=== PATIENT | female | born 2000 | race Caucasian/White ===

== ENCOUNTER 2023-06-26 20:11 | Emergency (ER) | payer SELFPAY ==
[~2023-06-26] VITALS: Ht 162.6 cm; Wt 68.0 kg
[2023-06-26 20:14] VITALS: TEMP 98.9
[2023-06-26] MEDS: MORPHINE SULFATE 4 MG/ML INJ (FOR IV/IM USE) IV ONE (20:54)
[2023-06-26] MEDS: SODIUM CHLORIDE 0.9% 1,000 ML IV ONE (20:54)
[2023-06-26] MEDS: ONDANSETRON HCL 4MG/2ML INJ IV ONE (20:54)
[2023-06-26 21:07] LABS: BASOPHILS % 0.3 % (0.0-2.0); EOSINOPHILS % 1.3 % (0.0-5.0); HEMATOCRIT. 37.3 % (36.0-48.0); HEMOGLOBIN. 12.9 g/dL (12.0-16.0); LYMPHOCYTES % 34.1 % (20.0-50.0); MEAN CORPUSCULAR HGB CONC 34.6 g/dL (31.0-37.0); MEAN CORPUSCULAR VOLUME 95.4 fL (81.0-99.0); MEAN PLATELET VOLUME 8.3 fl (7.4-10.4); MONOCYTES % 5.6 % (2.0-8.0); NEUTROPHILS % 58.7 % (40.0-76.0); PLATELET 277 x1000/uL (130-400); RED BLOOD CELL COUNT 3.91 mill/uL (4.2-5.4); RED CELL DISTRIBUTION WIDTH 13.8 % (11.6-14.6); WHITE BLOOD COUNT 9.2 x1000/uL (4.5-11.0)
[2023-06-26 21:24] LABS: HCG SCREEN NEGATIVE
[2023-06-26 21:26] LABS: ALANINE AMINOTRANSFERASE 13 IU/L (10-49); ALBUMIN 4.8 g/dL (3.2-4.8); ASPARTATE AMINOTRANSFERASE 19 IU/L (<34); BILIRUBIN TOTAL 0.4 mg/dL (0.1-1.0); CALCIUM 9.2 mg/dL (8.7-10.4); CARBON DIOXIDE 26 mEq/L (21-32); CHLORIDE 105 mEq/L (98-107); CREATININE 0.7 mg/dL (0.6-1.0); GLUCOSE 113 mg/dL (70-105); POTASSIUM 3.4 mEq/L (3.5-5.1); PROTHROMBIN TIME 10.9 sec (9.6-11.0); SODIUM 138 mEq/L (136-145); UREA NITROGEN BLOOD 10 mg/dL (9-23)
[2023-06-26] MEDS: HYDROMORPHONE HCL/PF 2MG/ML CPJ IV ONE (22:04)
[2023-06-26 23:20] VITALS: O2SAT 98
[2023-06-26] MEDS: PROPOFOL 10MG/ML 100ML 100 ML IV SCH (23:20)
[2023-06-27 01:52] VITALS: BP 113/64; PULSE 73; RESP 8
== END 2023-06-27 01:59 | disposition home or self-care (01) ==
LOC: ER 20:11
DX: S83.005A Unspecified dislocation of left patella, initial encounter (principal); R56.9 Unspecified convulsions; X58.XXXA Exposure to other specified factors, initial encounter; Y93.89 Activity, other specified; Y92.89 Other specified places as the place of occurrence of the external cause; Y99.8 Other external cause status
CPT/HCPCS: 80053; 84703; 85025; 85610; 36415; 73560; 27560; 96361; 96374; 96375; 99152; 99285; J2405; J2704; J1170; J2270; J7030; Z7610 ×3; L1830